=== PATIENT | male | born 1945 | race Caucasian/White ===

== ENCOUNTER → 2017-09-22 09:46 | Outpatient (CLI) | payer OTHER, SELFPAY ==
--- NOTE | 2017-09-22 | DI.US.S_ITS ---
ULTRASOUND OF RIGHT BREAST AND RIGHT AXILLA: 09/22/2017 CLINICAL: Patient returns for additional imaging over a suspected mass in the right breast. Comparison is made to exam dated: 09/22/2017 [facility]. Color flow and real-time ultrasound of the right breast and axilla were performed on the areas of interest. There is a 3.8 cm x 1.5 cm x 2.2 cm oval mass with a lobulated margin in the right breast at 10 o'clock anterior depth. This oval mass is hypoechoic but of mixed echogenicity. This correlates with mammography findings. Color flow imaging demonstrates that there is vascularity present. There also is a 2.1 cm x 1.3 cm x 1.4 cm oval mass with a lobulated margin in the right breast at 10 o'clock posterior depth. This oval mass is hypoechoic. This correlates with mammography findings. Color flow imaging demonstrates that there is vascularity present. Additionally, there is a 1.1 cm x 0.8 cm x 1 cm oval lymph node with an indistinct and circumscribed margin in the right axillary tail. This oval lymph node is of mixed echogenicity with fatty hilum. This correlates with mammography findings. Color flow imaging demonstrates that there is vascularity present. IMPRESSION: SUSPICIOUS OF MALIGNANCY - FOLLOW-UP RECOMMENDED The 3.8 cm x 1.5 cm x 2.2 cm oval mass in the right breast at 10 o'clock anterior depth is at a moderate suspicion for malignancy. An ultrasound guided biopsy is recommended. The 2.1 cm x 1.3 cm x 1.4 cm oval mass in the right breast at 10 o'clock posterior depth is at a moderate suspicion for malignancy. An ultrasound guided biopsy is recommended. The 1.1 cm x 0.8 cm x 1 cm oval lymph node in the right axillary tail is within normal size limits without focal cortical thickening. The findings were discussed with the patient at the conclusion of the study by Dr. Reid. This exam was interpreted at Station ID: [id number]. Electronically Signed By: Evans Arellano M.D. ddp/:09/22/2017 14:49:52 letter sent: Biopsy Required Ultrasound BI-RADS: 4c Suspicious abnormality - moderate concern but not classic for malignancy
--- NOTE | 2017-09-22 | DI.MG.S_ITS ---
MALE BILATERAL DIGITAL DIAGNOSTIC MAMMOGRAM 3D/2D: 09/22/2017 CLINICAL: Baseline exam. Right breast lumps. No prior exams were available for comparison. There is a 3.7 cm oval equal density mass with a macrolobulated margin in the right breast central to the nipple anterior depth. There also is a 1.8 cm oval equal density asymmetry with a circumscribed margin in the right breast middle depth superior region seen on the mediolateral oblique view only. Additionally, there is a 1.3 cm x 0.7 cm oval equal density lymph node with a circumscribed margin in the right breast posterior depth superior region seen on the mediolateral oblique view only. No other significant masses, calcifications, or other findings are seen in either breast. IMPRESSION: INCOMPLETE: NEEDS ADDITIONAL IMAGING EVALUATION The 3.7 cm oval equal density mass in the right breast central to the nipple anterior depth is indeterminate. An ultrasound is recommended. The 1.8 cm oval equal density asymmetry in the right breast middle depth superior region seen on the mediolateral oblique view only is indeterminate. An ultrasound is recommended. The 1.3 cm x 0.7 cm oval equal density lymph node in the right breast posterior depth superior region seen on the mediolateral oblique view only is indeterminate. An ultrasound is recommended. This exam was interpreted at Station ID: [id number]. NOTE: For mammograms, a report in lay terms will be sent to the patient. Approximately 15% of breast malignancies will not be visualized mammographically. In the management of a palpable breast mass, a negative mammogram must not discourage biopsy of a clinically suspicious lesion. Electronically Signed By: Evans mcnair/gemma:09/22/2017 11:21:17 letter sent: Need Ultrasound ACR BI-RADS Category 0: Incomplete [id number]
== END ==
PROVIDERS: PCP Internal Medicine; Visit Provider Internal Medicine
DX: N63.11 Unspecified lump in the right breast, upper outer quadrant (principal)
CPT/HCPCS: 76642; 77066; G0279

== ENCOUNTER → 2017-10-10 13:21 | Outpatient (CLI) | payer OTHER, SELFPAY ==
--- NOTE | 2017-10-10 | DI.US.S_ITS ---
MULTIPLE ULTRASOUND GUIDED BIOPSIES RIGHT BREAST USING VACUUM DEVICE WITH MARKING DEVICES INSERTED AND POST DIGITAL MAMMOGRAPHIC AND ULTRASOUND IMAGIN10/10/2017 CLINICAL: Right breast mass x 2: #1 10:00 2cn fn #2 9:30 12cm fn. PATIENT CONSENT: Risks (minor bleeding, infection, vasovagal reaction and repeat procedure), benefits and alternatives were explained to the patient and written informed consent was obtained. Correlation is made to exams dated: 09/22/2017 ultrasound and 09/22/2017 [facility]. An ultrasound guided biopsy using real-time ultrasound was performed for the palpable 4 cm circumscribed lobulated cystic mass located in the right breast at 10 o'clock anterior depth. This was described on the previous mammography and ultrasound reports. The skin was prepped in the usual manner. Local anesthetic was administered to the access site. A skin shanti was made in the breast. The abnormality was approached from the caudocranial aspect. A 13 gauge biopsy needle was placed adjacent to the abnormality under ultrasound guidance. Once the needle was documented to be in the correct location, four specimens were obtained using the Mammotome biopsy system. The patient received additional local anesthetic during the procedure. A titanium clip was inserted into the biopsy cavity. Post procedure digital mammographic and ultrasound imaging demonstrates the clip at the targeted area and partial removal of the abnormality. The specimens were sent to the laboratory for pathological analysis. A second ultrasound guided biopsy using real-time ultrasound was performed for the 2 cm circumscribed lobulated cystic mass located in the right breast at 9 o'clock middle depth. This was described on the previous mammography and ultrasound reports. The skin was prepped in the usual manner. Local anesthetic was administered to the access site. A skin shanti was made in the breast. The abnormality was approached from the caudocranial aspect. A 13 gauge biopsy needle was placed adjacent to the abnormality under ultrasound guidance. Once the needle was documented to be in the correct location, four specimens were obtained using the Mammotome biopsy system. The patient received additional local anesthetic during the procedure. A titanium clip was inserted into the biopsy cavity. Post procedure digital mammographic and ultrasound imaging demonstrates the clip at the targeted area and partial removal of the abnormality. The specimens were sent to the laboratory for pathological analysis. IMPRESSION: ULTRASOUND GUIDED BIOPSY MALIGNANT Ultrasound guided biopsy of the 4 cm cystic mass in the right breast at 10 o'clock anterior depth was successful. Ultrasound guided biopsy of the 2 cm cystic mass in the right breast at 9 o'clock middle depth was successful. Final pathology for the right breast mass at 10 o'clock position was positive for malignant melanoma. Final pathology for the right breast mass at 9 o'clock position was positive for malignant melanoma. These results are concordant with imaging. Continued clinical follow-up for further evaluation and management and surgical consultation recommended for possible surgical excision. These results will be communicated to the patient's ordering provider. This exam was interpreted at Station ID: [id number]. Yovani dueks,ecl/:10/22/2017 01:47:51
--- NOTE | 2017-10-10 | DI.MG.S_ITS ---
MALE UNILATERAL RIGHT DIGITAL DIAGNOSTIC MAMMOGRAM POST-NEEDLE BIOPSY: 10/10/2017 CLINICAL: Post clip placement. Comparison is made to exams dated: 09/22/2017 mammogram and 09/22/2017 [facility]. There is a marker clip in the appropriate position in the right breast at 10 o'clock anterior depth. This marker clip placement is at biopsy site. There also is a marker clip in the appropriate position in the right breast at 9 o'clock anterior depth. This marker clip placement is at biopsy site. IMPRESSION: POST PROCEDURE MAMMOGRAM FOR MARKER PLACEMENT There was a successful marker clip placement in the right breast at 10 o'clock anterior depth. There was a successful marker clip placement in the right breast at 9 o'clock anterior depth. This exam was interpreted at Station ID: [id number]. NOTE: For mammograms, a report in lay terms will be sent to the patient. Approximately 15% of breast malignancies will not be visualized mammographically. In the management of a palpable breast mass, a negative mammogram must not discourage biopsy of a clinically suspicious lesion. Electronically Signed By: Yovani dukes/:10/10/2017 15:33:00 ACR BI-RADS Category Post-procedure mammogram for marker placement
--- NOTE | 2017-10-10 | PATH_ITS ---
[facility] Accession Number: [id number] . 01 Material submitted: . PART A: RT BRST MASS PART B: RT BRST MASS . 01 Clinical history: . A: RT BRST MASS 10:00, 2 CM FN B: RT BRST MASS 9:30, 12 CM FN . 02 Diagnosis: A. Right Breast, Mass at 10 O'Clock, 2 CM FN, Biopsy: Malignant melanoma. Please see comment. . B. Right Breast, Mass at 9:30 O'Clock, 12 CM FN, Biopsy: Malignant melanoma. Please see comment. JRL/10/16/2017 . 02 Comment: A. The malignant cells are present in a background of necrosis. Clinical and radiologic correlation recommended to determine if this represents a metastasis or a primary lesion. . B. The malignant cells are present admixed with necrosis and a few small patches of lymphocytes, raising the consideration of metastasis to a lymph node. Clinical and radiologic correlation is recommended. . As part of routine quality control supervisor, Dr. Yoon and Dr. Nuñez also reviewed this case and agree with the interpretation. Dr. Perdue discussed the results with Dr. Augustine on 10/16/2017. . 02 Electronically signed: . Enedina Perdue MD, Pathologist NPI- [id number] . 01 Gross description: . (A)Received in formalin, labeled bx breast perc w vac device, are multiple fragments of red-brown tissue (3.0 x 1.3 x 0.1 cm in aggregate). Filtered and entirely submitted in cassette A1. . (B)Received in formalin, labeled bx breast, perc w vac device, are multiple fragments of fibrofatty tissue (1.5 x 1.0 x 0.2 cm in aggregate). Filtered and entirely submitted in cassette B1. . Note: Approximate total fixation time in formalin for both specimens-44 hours and 30 minutes calculated using a collection date of 10/10/2017 with collection times of 1408 and 1416. ([id number]) /[facility] . 02 Microscopic: . Immunohistohemical stains were performed to characterize the cells of interest. All control stains showed appropriate reactivity. . Block A: p63: Negative CK5/6: Negative ER: Negative . Block B: p63: Negative CK5/6: Negative ER: Negative Monalisa-3: Negative ESTRADA: Negative SOX-10: Uniformly positive. HMB-45: Uniformly positive. Melan-A: Uniformly positive. . Interpretation: The immunophenotype is consistent with malignant melanoma. . * This test was developed and its performance characteristics determined by [employer]. It has not been cleared or approved by the U.S. Food and Drug Administration. The FDA has determined that such clearance or approval is not necessary. This test is used for clinical purposes. It should not be regarded as investigational or for research. . 02 Pathologist provided ICD-10: C79.81 . 02 CPT . 264736, 442544, U62472, [id number] Performed at: 01 [facility] [address] [facility] [address], [place], [place] [id number] MD Evans Rasmussen MD Phone: [phone] Performed at: [address] [facility] [address] [place], [place] [id number] MD Yogi Bustamante MD Phone: [phone]
== END ==
PROVIDERS: PCP Internal Medicine; Visit Provider Internal Medicine
DX: C50.421 Malignant neoplasm of upper-outer quadrant of right male breast (principal); C50.821 Malignant neoplasm of overlapping sites of right male breast; Z17.1 Estrogen receptor negative status [ER-]
CPT/HCPCS: 19083; 19084; 77065

== ENCOUNTER → 2023-01-10 13:16 | Outpatient (CLI) | payer OTHER, SELFPAY ==
--- NOTE | 2023-01-10 | DI.RAD.S_ITS ---
PROCEDURE: FL CATHETER PATENCY COMPARISON: None. INDICATIONS: Malignant neoplasm of overlapping sites FINDINGS: There is a Port-A-Cath with the tip in the right atrium. The Port-A-Cath was accessed by nurse. Contrast was injected through the port the patient was examined under fluoroscopy. The Port-A-Cath central venous catheter is patent. There is a fibrin sheath at the tip of the catheter. After the examination, the port was flushed with normal saline. Visualized right lung is clear. Old right anterior rib fractures are noted IMPRESSION: 1. Fibrin sheath at the tip the central venous catheter. Dictated by: Nataliya Shaffer M.D. on 01/10/2023 at 15:12 Approved by: Nataliya Shaffer M.D. on 01/10/2023 at 15:15
== END ==
PROVIDERS: PCP Internal Medicine; Referring Provider Internal Medicine Hematology & Oncology; Visit Provider Internal Medicine Hematology & Oncology
DX: C43.8 Malignant melanoma of overlapping sites of skin (principal); Z45.2 Encounter for adjustment and management of vascular access device
CPT/HCPCS: 76000